=== PATIENT | female | born 1990 | race Hispanic/Latino ===

== ENCOUNTER 2020-11-28 22:53 | Emergency (ER) | payer BC ==
[~2020-11-28 22:53] MED LIST: DCS100C PO; IBP600T1 PO; IBP800T PO; IBUP-1773 PO; NITR-65 PO; OXYC-12 PO; OXYC1TAB12 PO; PREN-115 PO
[2020-11-28 23:04] VITALS: BP 151/91
[2020-11-28] MEDS ORDERED: CEPHALEXIN 250 MG (KEFLEX) CAP PO STA (23:20)
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
[2020-11-28] MEDS ORDERED: TRM50T PO (23:25)
[2020-11-28] MEDS ORDERED: CEPH500T PO (23:25)
[2020-11-28] MEDS ORDERED: TETANUS,DIPTH,PERTUSS P/F (BOOSTRIX) 0.5 ML VIAL IM ONE (23:30)
== END 2020-11-28 23:43 | disposition home or self-care (01) ==
LOC: ER 22:57 → MERGE 22:57 → ER 23:43
DX: T24.212A Burn of second degree of left thigh, initial encounter (principal); T24.211A Burn of second degree of right thigh, initial encounter; T31.0 Burns involving less than 10% of body surface; Z23 Encounter for immunization; W39.XXXA Discharge of firework, initial encounter
CPT/HCPCS: 90715